=== PATIENT | female | born 1970 | race African-American/Black ===

== ENCOUNTER 2017-09-27 12:36 | Inpatient (IN) | payer OTHER ==
[2017-09-27 14:35] VITALS: BMI 26.4
[2017-09-27] MEDS ORDERED: MELATONIN 5 MG TABLETS PO PRN (22:00)
[2017-09-27] MEDS ORDERED: P-EPHED 60MG/TRIPROLIDI 2.5MG TABLET PO PRN (23:25)
[2017-09-27] MEDS ORDERED: NICOTINE POLACRILEX 2 MG GUM BUC PRN (23:25)
[2017-09-27] MEDS ORDERED: MAGNESIUM CITRATE 300 ML BOTTLE PO PRN (23:25)
[2017-09-27] MEDS ORDERED: MAGNESIUM HYDROX 2400MG/30ML ORAL SUSPENSION 30 ML CUP PO PRN (23:25)
[2017-09-27] MEDS ORDERED: ACETAMINOPHEN 325 MG TABLET (FP) PO PRN ×2 (23:25→23:58)
[2017-09-27] MEDS ORDERED: MAG HYDROX/AL HYDROX/SIMETH 30 ML UNIT-DOSE CUP PO PRN ×2 (23:25→23:58)
[2017-09-27] MEDS ORDERED: MENTHOL/PHENOL 1 EACH UD MM PRN (23:25)
[2017-09-27] MEDS ORDERED: IBUPROFEN 400 MG TABLET (FP) PO PRN (23:25)
[2017-09-27] MEDS ORDERED: guaiFENesin/D-METHORPHAN HB 10 ML UNIT-DOSE CUPS PO PRN (23:25)
[2017-09-27] MEDS ORDERED: LOPERAMIDE HCL 2 MG CAPSULE PO PRN (23:25)
[2017-09-27] MEDS ORDERED: ALBUTEROL SO4 18 GM HFA INHALER IH PRN (23:26)
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
[2017-09-27] MEDS ORDERED: ALBUTEROL SO4 2.5/IPRATROPIUM 0.5 INH SOL 3 ML VIAL.NEB. NEB PRN (23:43)
[2017-09-27] MEDS ORDERED: TUBERCULIN PPD 5 TU/0.1ML VIAL ID ONE (23:52)
[2017-09-28] MEDS ORDERED: cloNIDine HCL 0.1 MG TABLET PO ONE (07:35)
[2017-09-28] MEDS ORDERED: PT OWN MED DRAWER 7, Y5N ONE (09:34)
[2017-09-28] MEDS: LABETALOL HCL 100 MG TABLET (FP) PO SCH ×2 (10:49→21:42)
[2017-09-28] MEDS: cloNIDine HCL 0.1 MG TABLET PO SCH ×2 (10:49→21:42)
[2017-09-28] MEDS: LISINOPRIL 10 MG TABLET (FP) PO SCH (10:49)
[2017-09-28] MEDS: ASPIRIN 81 MG CHEWABLE TABLETS PO SCH (10:49)
[2017-09-28] MEDS: PRENATAL VITAMINS W/ FOLIC ACID TABLET (FP) PO SCH (10:49)
[2017-09-28] MEDS: NICOTINE 14 MG/24 HOURS TOPICAL PATCH TD SCH (10:49)
--- NOTE | 2017-09-28 16:49 | EKG ---
Test Reason : Blood Pressure : / mmHG Vent. Rate : 062 BPM Atrial Rate : 062 BPM P-R Int : 134 ms QRS Dur : 096 ms QT Int : 456 ms P-R-T Axes : 019 048 038 degrees QTc Int : 462 ms NORMAL SINUS RHYTHM MODERATE VOLTAGE CRITERIA FOR LVH, MAY BE NORMAL VARIANT BORDERLINE ECG NO PREVIOUS ECGS AVAILABLE Confirmed by MD Fredi, Rick ([id number]) on 09/28/2017 4:48:47 PM Referred By: Confirmed By:Rick Rai MD
[2017-09-28 17:01] LABS: HEMATOCRIT 27.3 % (32.4-45.2); HEMOGLOBIN 9.1 GM/dL (10.7-15.3); MCH 32.9 pg (25.7-33.7); MCHC 33.4 g/dl (32.0-36.0); MEAN CELL VOLUME 98.6 fl (80-96); MEAN PLT VOLUME 9.6 fl (7.5-11.1); PLATELET COUNT 228 K/MM3 (134-434); RBC 2.77 M/mm3 (3.60-5.2); RDW 16.5 % (11.6-15.6); WHITE BLOOD COUNT 4.7 K/mm3 (4.0-10.0)
[2017-09-28 17:06] LABS: ALBUMIN 3.1 g/dl (3.4-5.0); ANION GAP 8 (8-16); BLOOD UREA NITROGEN 21 mg/dL (7-18); CALCIUM 8.1 mg/dL (8.5-10.1); CHLORIDE 105 mmol/L (98-107); CO2 29 mmol/L (21-32); CREATININE 0.9 mg/dL (0.55-1.02); GLUCOSE,RANDOM 132 mg/dL (74-106); POTASSIUM 4.1 mmol/L (3.5-5.1); SGOT/AST 13 U/L (15-37); SGPT/ALT 18 U/L (12-78); SODIUM 142 mmol/L (136-145)
[2017-09-28 17:07] LABS: ALK PHOS 59 U/L (45-117); BILIRUBIN,TOTAL 0.4 mg/dL (0.2-1.0); TOT PROT 6.2 g/dl (6.4-8.2)
[2017-09-28] MEDS: THIAMINE HCL 100 MG TABLET (FP) PO SCH (21:42)
[2017-09-29] MEDS ORDERED: cloNIDine HCL 0.1 MG TABLET PO SCH (10:01)
[2017-09-29 10:02] LABS: RPR REACTIVE 1:2 (NONREACTIVE)
[2017-09-29 10:03] LABS: TREPONEMA ANTIBODY PREVIOUSLY REACTIVE (NONREACTIVE)
[2017-09-29] MEDS: NICOTINE 14 MG/24 HOURS TOPICAL PATCH TD SCH (10:36)
[2017-09-29] MEDS: cloNIDine HCL 0.1 MG TABLET PO SCH (10:36)
[2017-09-29] MEDS: LISINOPRIL 10 MG TABLET (FP) PO SCH (10:38)
[2017-09-29] MEDS: LABETALOL HCL 100 MG TABLET (FP) PO SCH ×2 (10:38→21:34)
[2017-09-29] MEDS: ASPIRIN 81 MG CHEWABLE TABLETS PO SCH (10:38)
[2017-09-29] MEDS: PRENATAL VITAMINS W/ FOLIC ACID TABLET (FP) PO SCH (10:38)
[2017-09-29] MEDS ORDERED: PT OWN MED DRAWER 7, Y5N ONE ×2 (14:33→19:58)
--- NOTE | 2017-09-29 15:17 | HP ---
Psychiatrist Admission - Data Date of interview: 09/29/17 Admission source: [facility] Identifying data: This is one of the multiple admissions to [address] [place] [address] for this 47 years old AA single female Medical History: Significant for BA,Chronic arthritis. Vital Signs: Vital Signs - 24 hr 09/28/17 09/29/17 09/29/17 20:45 00:30 03:30 Temperature Pulse Rate 52 L Respiratory 18 18 Rate Blood Pressure 177/68 09/29/17 09/29/17 09/29/17 07:26 09:18 10:00 Temperature 97.7 F 98.2 F Pulse Rate 48 L 67 48 L Respiratory 18 18 18 Rate Blood Pressure 189/77 137/92 162/63 Allergies/Adverse Reactions: Allergies Allergy/AdvReac Type Severity Reaction Status Date / Time haloperidol [From Haldol] Allergy Severe HEAD TWISTS Verified 09/27/17 16:04 haloperidol lactate Allergy Severe HEAD TWISTS Verified 09/27/17 16:04 [From Haldol] Date of last physical exam: 09/27/17 Concur with the findings of this exam: Yes - Substance Abuse/Tx History Hx Alcohol Use: Yes Hx Substance Use: Yes Substance Use Type: Alcohol, Cocaine Hx Substance Use Treatment: Yes Mental Status Exam - Mental Status Exam Alert and Oriented to: Time, Place, Person Cognitive Function: Grossly Intact Patient Appearance: Unkempt, Disheveled Mood: Irritable Affect: Mood Congruent, Labile Patient Behavior: Resitive to Care Speech Pattern: Clear Voice Loudness: Normal Thought Process: Goal Oriented Thought Disorder: Being Controlled Hallucinations: Denies Suicidal Ideation: Denies Homicidal Ideation: Denies Insight/Judgement: Fair Sleep: Fair Appetite: Fair Muscle strength/Tone: Normal Gait/Station: Normal Psychiatric Findings - Problem List ([place] 1, 2,3) (1) Asthma Current Visit: Yes Status: Chronic Qualifiers: Asthma severity: unspecified severity Asthma persistence: unspecified Asthma complication type: unspecified Qualified Code(s): J45.909 - Unspecified asthma, uncomplicated (2) Cocaine dependence Current Visit: Yes Status: Chronic (3) Essential hypertension Current Visit: Yes Status: Chronic (4) Nicotine dependence Current Visit: Yes Status: Chronic Qualifiers: Nicotine product type: cigarettes (5) arthritis both knees Current Visit: Yes Status: Chronic (6) schizoaffective disorder Current Visit: Yes Status: Chronic (7) Alcohol dependence Current Visit: Yes Status: Chronic - Initial Treatment Plan Initial Treatment Plan: Continue current medications as per plan.
--- NOTE | 2017-09-29 16:48 | PN ---
[facility] Progress Note Note: Notified by staff to review labs and change IBU to naprosyn. Laboratory Tests 09/28/17 09/28/17 09/28/17 08:30 08:30 08:30 WBC 4.7 RBC 2.77 L Hgb 9.1 L Hct 27.3 L MCV 98.6 H MCH 32.9 MCHC 33.4 RDW 16.5 H Plt Count 228 D MPV 9.6 D Sodium 142 Potassium 4.1 Chloride 105 Carbon Dioxide 29 Anion Gap 8 BUN 21 H Creatinine 0.9 Creat Clearance w eGFR > 60 Random Glucose 132 H Calcium 8.1 L Total Bilirubin 0.4 D AST 13 L ALT 18 Alkaline Phosphatase 59 Total Protein 6.2 L Albumin 3.1 L RPR Titer T.pallidum Ab (MHA) HIV 1&2 Antibody Screen Negative HIV P24 Antigen Negative 09/28/17 08:30 WBC RBC Hgb Hct MCV MCH MCHC RDW Plt Count MPV Sodium Potassium Chloride Carbon Dioxide Anion Gap BUN Creatinine Creat Clearance w eGFR Random Glucose Calcium Total Bilirubin AST ALT Alkaline Phosphatase Total Protein Albumin RPR Titer Reactive 1:2 H T.pallidum Ab (MHA) Previously reactive HIV 1&2 Antibody Screen HIV P24 Antigen Vital Signs Temperature 98.2 F 09/29/17 10:00 Pulse Rate 48 L 09/29/17 10:00 Respiratory Rate 18 09/29/17 10:00 Blood Pressure 162/63 09/29/17 10:00 O2 Sat by Pulse Oximetry (%) Subj: Pt is alert and oriented x 3. + knee pain, level 5/10. Has hx of OA and Syphyllis. Pt received treatment for Syphyllis and states her RPR titres are normally 1:2. Obj: Joints: Knees without edema and deformity. Full ROM. A/P: OA Hx of Syphyllis Will D/C Ibuprofen Start naprosyn 500mg BID Monitor clinically
[2017-09-29] MEDS: THIAMINE HCL 100 MG TABLET (FP) PO SCH (21:35)
[2017-09-29] MEDS ORDERED: NAPROXEN 500 MG TABLET (FP) PO SCH (22:00)
[2017-09-30] MEDS ORDERED: cloNIDine HCL 0.1 MG TABLET PO ONE (06:50)
--- NOTE | 2017-09-30 06:56 | PN ---
S Progress Note Note: informed client is leaving [facility] with b/p of 210/84 P 50. client is agitated and uncooperative. a/o x3 nad. does not want to speak with provider. using foul language toward the rn. attempted to discuss risks of elevated bp, pt walked away from provider give clonidine 0.2mg now if pt will accept notify attending of [facility]a.
[2017-09-30 06:58] VITALS: BP 210/84; PULSE 50; TEMP 98.3
== END 2017-09-30 06:55 | disposition left against medical advice (07) | DRG 894 ==
LOC: YASAS 12:36 → Y3E 16:55
PROVIDERS: ADMIT Psychiatry & Neurology Psychiatry; ATTEND Psychiatry & Neurology Psychiatry
PROC: HZ42ZZZ Group Counseling for Substance Abuse Treatment, Cognitive-Behavioral (ICD-10-PCS; principal; 2017-09-27)
DX: F10.20 Alcohol dependence, uncomplicated (principal); F17.210 Nicotine dependence, cigarettes, uncomplicated; F25.9 Schizoaffective disorder, unspecified; I25.10 Atherosclerotic heart disease of native coronary artery without angina pectoris; I10 Essential (primary) hypertension; Z95.1 Presence of aortocoronary bypass graft; Z95.5 Presence of coronary angioplasty implant and graft; J45.909 Unspecified asthma, uncomplicated; M13.862 Other specified arthritis, left knee; M13.861 Other specified arthritis, right knee; Z91.5 Personal history of self-harm
CPT/HCPCS: 36415; 80053; 85027; 86593; 86780; 87389; 93005; 93010; J0735